=== PATIENT | female | born 1935 | race Caucasian/White ===

== ENCOUNTER 2017-11-02 04:07 | Inpatient (IN) | payer MEDICARE ==
[2017-11-02] MEDS ORDERED: NITROGLYCERIN-D5W PMX 50 MG in DEXTROSE/WATER 1 250ML.BAG IV ONE (04:41)
--- NOTE | 2017-11-02 04:41 | ED ---
General Adult HPI - General Chief complaint: Shortness of Breath Stated complaint: Diff Breathing Time Seen by Provider: 11/02/17 04:11 Source: patient Mode of arrival: EMS Limitations: physical limitation - History of Present Illness Initial comments: Renée is an 82-year-old female with a history of A. fib but no known history of congestive heart failure who is transferred to our facility from outside facility for admission for CHF exacerbation with pulmonary edema. Patient called 911 for acute onset of shortness of breath, she was noted to be tachypneic and hypoxic upon arrival to the outside hospital. EMS had placed her on CPAP, she was resistant to BiPAP and a cardiac workup was initiated. A couple suggestive of CHF exacerbation with a chest x-ray suggestive of fluid overload, BNP of greater than 2000, lactic acid of 5.9, negative troponin and an EKG with atrial fibrillation. He did with IV Lasix and continued on BiPAP prior to being transferred to our facility. Upon arrival the patient denies any chest pain, she reports she is feeling better on the BiPAP, she complains only of a dry mouth. The patient has 2 word dyspnea, is on BiPAP and is tachypneic with a respiratory rate in the 30s which limits her ability to provide a thorough history. - Related Data Allergies Allergy/AdvReac Type Severity Reaction Status Date / Time lisinopril Allergy Unknown Verified 11/02/17 04:24 Review of Systems ROS Statement: Those systems with pertinent positive or pertinent negative responses have been documented in the HPI. ROS Other: All systems not noted in ROS Statement are negative. Past Medical History Past Medical History: Atrial Fibrillation, Hyperlipidemia, Hypertension, Osteoarthritis (OA) History of Any Multi-Drug Resistant Organisms: None Reported Additional Past Surgical History / Comment(s): colonoscopy Past Psychological History: Unable to Obtain Smoking Status: Unknown if ever smoked Past Alcohol Use History: Unable to Obtain Past Drug Use History: Unable to Obtain General Exam Limitations: physical limitation General appearance: alert, in distress Head exam: Present: atraumatic, normocephalic Eye exam: Present: PERRL ENT exam: Present: other (Dentures were removed, patient is on BiPAP) Neck exam: Present: full ROM, other (JVD) Respiratory exam: Present: respiratory distress Cardiovascular Exam: Present: irregular rhythm GI/Abdominal exam: Present: soft. Absent: distended Rectal exam: Present: deferred Extremities exam: Present: normal capillary refill, pedal edema Neurological exam: Present: alert, oriented X3 Psychiatric exam: Present: normal affect, normal mood Skin exam: Present: warm, dry Course Vital Signs 11/02/17 11/02/17 11/02/17 04:16 04:24 05:16 Temperature Pulse Rate 101 H 88 Respiratory 34 H 34 H 30 H Rate Blood Pressure 164/67 128/57 O2 Sat by Pulse 99 99 Oximetry 11/02/17 11/02/17 11/02/17 05:39 06:04 06:10 Temperature Pulse Rate 88 85 87 Respiratory 24 Rate Blood Pressure 130/60 O2 Sat by Pulse 99 Oximetry 11/02/17 06:20 Temperature 96.1 F L Pulse Rate 93 Respiratory 21 Rate Blood Pressure 137/73 O2 Sat by Pulse 99 Oximetry Medical Decision Making - Medical Decision Making Patient care was discussed with ER physician at [facility], patient 's physical exam and labs are consistent with CHF exacerbation. Patient hemodynamically stable on BiPAP remains tachypneic but not acutely distressed he feels she is stable for transfer here On arrival the patient is tachypneic on BiPAP, she has 2 word dyspnea, she is diuresing well Repeat labs were ordered IV nitro was ordered, BiPAP was continued Patient care was discussed with Dr. Johns who accepts the patient to the ICU for CHF with acute pulmonary edema Patient care was discussed with Dr. Paredes the medicine admitting physician - Lab Data Result diagrams: 11/02/17 05:06 11/02/17 05:06 Disposition Clinical Impression: Congestive heart failure, Pulmonary edema cardiac cause Disposition: ADMITTED IP TO THIS [facility] Is patient prescribed a controlled substance at d/c from ED?: No Decision Time: 08:14
[2017-11-02] MEDS ORDERED: NALOXONE 0.4 MG/ML 1 ML VIAL IV PRN (05:02)
[2017-11-02 05:33] LABS: Basophils % (A) 0 %; Eosinophils % (A) 1 %; HCT 45.5 % (34.0-46.0); HGB 14.9 gm/dL (11.4-16.0); Lymphocytes # (A) 0.8 k/uL (1.0-4.8); Lymphocytes % (A) 9 %; MCH 29.4 pg (25.0-35.0); MCHC 32.9 g/dL (31.0-37.0); MCV 89.4 fL (80.0-100.0); Monocytes # (A) 0.2 k/uL (0-1.0); Monocytes % (A) 2 %; Neutrophils # (A) 7.7 k/uL (1.3-7.7); Neutrophils % (A) 88 %; Platelet Count 208 k/uL (150-450); RBC 5.08 m/uL (3.80-5.40); WBC 8.7 k/uL (3.8-10.6)
[2017-11-02 05:42] LABS: INR 1.5 (<1.2); Partial Thromboplastin Time 22.3 sec (22.0-30.0); Prothrombin Time 13.8 sec (9.0-12.0)
[2017-11-02 05:43] LABS: Albumin 4.3 g/dL (3.5-5.0); Magnesium 1.8 mg/dL (1.6-2.3); Phosphorus 4.1 mg/dL (2.5-4.5); Potassium 3.7 mmol/L (3.5-5.1); Total Protein 7.5 g/dL (6.3-8.2)
[2017-11-02 05:57] LABS: Creatine Kinase MB 1.7 ng/mL (0.0-2.4)
[2017-11-02 06:06] LABS: Troponin I 0.06 ng/mL (0.000-0.034)
[2017-11-02 06:31] LABS: Glucose,Whole Blood 213 mg/dL (75-99)
[2017-11-02] MEDS ORDERED: Magnesium Replacement Protocol 1 EACH MISC MISCELLANE PRN (06:39)
[2017-11-02] MEDS ORDERED: Potassium Replacement Protocol 1 EACH MISC MISCELLANE PRN ×2 (06:40→08:28)
[2017-11-02 06:54] LABS: Appearance,Urine Clear (Clear); Color,Urine Colorless; Glucose,Urine (UA) Negative (Negative); Protein,Urine Negative (Negative); Specific Gravity,Urine 1.006 (1.001-1.035)
[2017-11-02 06:55] LABS: Bilirubin,Urine Negative (Negative); Blood,Urine Negative (Negative); Ketones,Urine Negative (Negative); Leukocyte Esterase,Urine Negative (Negative); Nitrite,Urine Negative (Negative); Urobilinogen,Urine <2.0 mg/dL (<2.0)
[2017-11-02] MEDS: MAGNESIUM SULFATE-D5W PMX 1 GM in DEXTROSE/WATER 1 100ML.BAG IVPB SCH ×2 (07:03→08:26)
[2017-11-02] MEDS ORDERED: INSULIN ASPART 100 UNIT/ML 1 ML 10 ML VIAL SQ SCH (07:45)
[2017-11-02] MEDS ORDERED: POTASSIUM CHLORIDE ER 20 MEQ TAB.ER PO SCH (08:00)
--- NOTE | 2017-11-02 08:19 | P.CNPUL ---
History of Present Illness Consult date: 11/02/17 Reason for consult: dyspnea, hypoxemia, pleural effusion, abnormal CXR/CT Chief complaint: Shortness of breath/heart failure History of present illness: Pulmonary consult dated 11/02/2017 This is a 82-year-old female who presents with emergent problem with complaints of increasing shortness of breath. She apparently has a history of chronic atrial fibrillation CHF hypertension dementia hyperlipidemia and vitamin D deficiency. She's also vitamin B12 may have pernicious anemia. Apparently the ER doctors akash is locked and we cannot get into it to review the history. She was seen in the emergency room treated with diuretics and BiPAP therapy and trim transferred up to the ICU. Her chest x-rays consistent with fluid overload. The patient was initially a transfer from [facility]. Currently she is on BiPAP with IPAP of 10 and EPAP of 5. FiO2 35%. Her IVs appointment 9 at KVO and she is on nitroglycerin at 5 mcg/m. She seems much more comfortable. ALLERGIES include lisinopril. She apparently did receive Lasix 60 mg in the emergency department. Review of Systems A 14 point review of system is positive for shortness of breath. The patient is not a particularly good historian and doesn't provide much history. She apparently does not have any fever chills cough phlegm production. There is no nausea vomiting diarrhea. There is no chest pain or chest discomfort according to her. Again it's very hard to get any history from her primarily because she is wearing a BiPAP mask and because she is not a very good historian to begin with. Past Medical History Past Medical History: Atrial Fibrillation, Hyperlipidemia, Hypertension, Osteoarthritis (OA) History of Any Multi-Drug Resistant Organisms: None Reported Additional Past Surgical History / Comment(s): colonoscopy Past Psychological History: Unable to Obtain Smoking Status: Unknown if ever smoked Past Alcohol Use History: Unable to Obtain Past Drug Use History: Unable to Obtain Medications and Allergies Allergies Allergy/AdvReac Type Severity Reaction Status Date / Time lisinopril Allergy Unknown Verified 11/02/17 04:24 Physical Exam Osteopathic Statement: *. No significant issues noted on an osteopathic structural exam other than those noted in the History and Physical/Consult. Vitals: Vital Signs Temp Pulse Resp BP Pulse Ox 11/02/17 07:00 100 19 123/75 98 08/16/18 06:30 88 19 98 11/02/17 06:20 96.1 F L 93 21 137/73 99 11/02/17 06:10 87 11/02/17 06:04 85 11/02/17 05:39 88 24 130/60 99 11/02/17 05:16 88 30 H 128/57 99 11/02/17 04:24 34 H 11/02/17 04:16 101 H 34 H 164/67 99 Intake and Output 11/01/17 11/02/17 11/02/17 22:59 06:59 14:59 Intake Total 70 20 Output Total 350 325 Balance -280 -305 Intake: IV 20 20 0.9 @ KVO 20 20 Amount of Fluid Infused ( 50 ml) Output: Urine 350 325 Other: Voiding Method Indwelling Catheter Weight 69.5 kg Mild respiratory distress, oriented 3. Her BiPAP mask is in place. HEENT examination is grossly unremarkable. Mucous membranes are moist. No oral lesions. Neck supple. Full range of motion. No adenopathy thyromegaly or neck vein distention. Cardiovascular examination reveals a irregular rhythm and rate. She is clearly in atrial fibrillation. S1-S2 normal. Heart rate about 80 bpm.. Lungs reveal bibasilar crackles. No wheezes. A few scattered rhonchi. Breath sounds are equal bilaterally. Breath sounds are diminished throughout. Abdomen soft bowel sounds are heard. No masses or tenderness. Extremities are intact. Mild edema is noted. No cyanosis or clubbing Skin is without rash or lesion. Neurologic examination is difficult to assess. Results - Laboratory Findings CBC and BMP: 11/02/17 05:06 11/02/17 05:06 PT/INR, D-dimer PT 13.8 sec (9.0-12.0) H 11/02/17 05:02 INR 1.5 (<1.2) H 11/02/17 05:02 Abnormal lab findings: Abnormal Labs 11/02/17 11/02/17 11/02/17 05:02 05:02 05:06 Lymphocytes # 0.8 L PT 13.8 H INR 1.5 H BUN Glucose POC Glucose (mg/dL) AST ALT Troponin I 0.060 H* 11/02/17 11/02/17 05:06 06:28 Lymphocytes # PT INR BUN 23 H Glucose 216 H POC Glucose (mg/dL) 213 H AST 104 H ALT 80 H Troponin I - Diagnostic Findings Chest x-ray: report reviewed (Chest x-ray, labs, his medications are all reviewed.), image reviewed Assessment and Plan Assessment: Assessment Acute hypoxemic respiratory failure secondary to congestive heart failure. Chronic atrial fibrillation with controlled ventricular response. History of hypertension History of dementia History of hyperlipidemia Vitamin D deficiency Possible pernicious anemia Mild elevation of troponin, likely related to supply demand mismatch. Plan: Plan dated 11/02/2017 CBC is completely normal. PT 13.8 and INR 1.5. Sodium 143 potassium 3.7 chloride 107 CO2 23 anion gap 13 BUN and creatinine were 23 and 0.9. AST is 104 and ALT is 80 likely reflecting congestive hepatopathy. Troponin is 0.060. N-terminal proBNP is elevated 2580. Chest x-ray is consistent with fluid overload. Medications are reviewed. The patient will need to have some Lasix added likely at 40 mg IV push every 12 hours. Cardiology should be consulted. She is currently on heparin subcu and protonix for DVT and GI prophylaxis. Additional recommendations and suggestions are forthcoming. She remains on KVO fluids the BiPAP and IV nitroglycerin. Time with Patient: Greater than 30
[2017-11-02] MEDS ORDERED: HEPARIN SODIUM,PORCINE 5,000 UNIT/ML 1 ML VIAL SQ SCH (09:00)
--- NOTE | 2017-11-02 09:01 | XR ---
EXAMINATION TYPE: XR chest 1V DATE OF EXAM: 11/02/2017 COMPARISON: 11/02/2017 HISTORY: Shortness of breath TECHNIQUE: Single frontal view of the chest is obtained. FINDINGS: Bilateral infiltrate and pleural effusion. Hyperinflation suggestive of COPD. Diffuse oste openia and arthropathy of the shoulders. Biapical pleural thickening. Hyperinflation suggests COPD. I nterstitial pattern noted. IMPRESSION: 1. COPD with bilateral infiltrate and small effusion correlate for mild venous congestion.
[2017-11-02] MEDS: PANTOPRAZOLE 40 MG/10 ML VIAL IV SCH (09:07)
[2017-11-02] MEDS: FUROSEMIDE 10 MG/ML 4 ML VIAL IV SCH ×2 (09:07→20:52)
[2017-11-02] MEDS: POTASSIUM CHLORIDE 10 MEQ in WATER FOR INJECTION 1 100ML.BAG IVPB SCH ×2 (09:07→12:41)
[2017-11-02 11:47] LABS: Glucose,Whole Blood 242 mg/dL (75-99)
[2017-11-02] MEDS: INSULIN ASPART 100 UNIT/ML 1 ML 10 ML VIAL SQ SCH ×2 (11:50→17:58)
[2017-11-02] MEDS: POTASSIUM CHLORIDE ER 20 MEQ TAB.ER PO SCH (16:47)
[2017-11-02 17:31] LABS: Glucose,Whole Blood 129 mg/dL (75-99)
[2017-11-02] MEDS: APIXABAN 2.5 MG TABLET PO SCH (20:52)
--- NOTE | 2017-11-02 23:02 | P.HPIM ---
History of Present Illness H&P Date: 11/02/17 Chief Complaint: Shortness of breath Patient is a 82-year-old female with a known history of atrial fibrillation on anticoagulation, CHF, hypertension, hyperlipidemia and dementia was initially presented to outside hospital facility with complaints of shortness of breath. Patient was noted to be tachypneic and hypoxic upon arrival to the outside hospital. Patient was placed on CPAP/BiPAP and was transferred to [facility] for cardiac evaluation and patient was admitted to intensive care unit. Patient was also found to have lactic is level 5.9. Troponin 1 negative and EKG showed atrial fibrillation with controlled ventricular rate. Currently patient breathing status is much improved now being monitored in the MICU. BNP 2480 Troponin 0.060 Chest x-ray showed COPD with bilateral infiltrate and small effusion correlate for mild vascular congestion. patient has been afebrile and WBC count 9.7 Review of Systems Constitutional: Patient denies any fever or chills . No generalized weakness or weight loss. Abdomen: Patient denied nausea vomiting and diarrhea and abdominal pain. Cardiovascular: Patient does have shortness of breath. No chest pain. Minimal lower extremities swelling Respiratory: patient denied any cough is from production. Patient does have shortness of breath Neurologic: Patient denied any numbness or tingling headache. Musculoskeletal: Patient denies any complaints of joint swelling or deformity. Skin: Negative Patient is a poor historian due to underlying dementia. Complete review of systems could not be obtained from the patient. 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 History of Any Multi-Drug Resistant Organisms: None Reported Past Surgical History: Bowel Resection, Hysterectomy, Orthopedic Surgery Additional Past Surgical History / Comment(s): colonoscopy, R hemicolectomy for aplastic adenoma, TAHBSO, L knee arthroscopy x2, x 2, bilateral cataract removals. Past Anesthesia/Blood Transfusion Reactions: No Reported Reaction Smoking Status: Former smoker - Past Family History Mother Family Medical History: Coronary Artery Disease (CAD) Additional Family Medical History / Comment(s): Mother lived to be 83 yrs old. Father History Unknown: Yes Additional Family Medical History / Comment(s): Father when pt was 6 yrs old Medications and Allergies Home Medications Medication Instructions Recorded Confirmed Type Apixaban [Eliquis] 2.5 mg PO BID 11/02/17 11/02/17 History Atorvastatin Calcium [Lipitor] 10 mg PO DAILY 11/02/17 11/02/17 History Carvedilol [Coreg] 3.125 mg PO BID 11/02/17 11/02/17 History Donepezil [Aricept] 10 mg PO DAILY 11/02/17 11/02/17 History Furosemide [Lasix] 40 mg PO DAILY 11/02/17 11/02/17 History Ibuprofen [Motrin] 400 mg PO TID PRN 11/02/17 11/02/17 History Losartan [Cozaar] 25 mg PO DAILY 11/02/17 11/02/17 History Potassium Chloride [Klor-Con 20] 20 meq PO DAILY 11/02/17 11/02/17 History Allergies Allergy/AdvReac Type Severity Reaction Status Date / Time lisinopril Allergy Unknown Verified 11/02/17 04:24 Physical Exam Vitals: Vital Signs Temp Pulse Resp BP Pulse Ox 11/02/17 15:00 77 18 100/59 98 11/02/17 14:30 77 17 106/63 96 11/02/17 14:00 87 16 109/58 96 11/02/17 13:30 79 15 114/55 98 11/02/17 13:00 78 20 104/59 99 11/02/17 12:30 88 22 108/57 100 11/02/17 12:00 97.8 F 80 19 101/71 100 11/02/17 11:30 82 18 124/67 99 11/02/17 11:00 75 19 112/64 99 11/02/17 10:30 83 22 94/77 100 11/02/17 10:00 78 18 107/61 100 11/02/17 09:30 79 19 119/55 99 11/02/17 09:00 84 21 124/63 94 L 11/02/17 08:30 83 19 119/66 99 11/02/17 08:00 97.6 F 87 19 120/73 99 11/02/17 07:30 85 19 124/77 99 11/02/17 07:00 100 19 123/75 98 11/02/17 06:30 88 19 98 11/02/17 06:20 96.1 F L 93 21 137/73 99 11/02/17 06:10 87 11/02/17 06:04 85 11/02/17 05:39 88 24 130/60 99 11/02/17 05:16 88 30 H 128/57 99 11/02/17 04:24 34 H 11/02/17 04:16 101 H 34 H 164/67 99 Intake and Output 11/02/17 11/02/17 11/02/17 06:59 14:59 22:59 Intake Total 70 520 20 Output Total 350 1435 35 Balance -280 -915 -15 Intake: IV 20 520 20 0.9 @ KVO 20 120 20 Magnesium Sulfate-D5w Pmx 200 1 gm In Dextrose/Water 1 100ml.bag @ 100 mls/hr IVPB Q1H [facility] Rx#: [id number] Potassium Chloride 10 meq 200 In Water For Injection 1 100ml.bag @ 100 mls/hr IVPB Q1H [facility] Rx#: [id number] Amount of Fluid Infused ( 50 ml) Output: Urine 350 1435 35 Other: Voiding Method Indwelling Catheter Indwelling Catheter Weight 69.5 kg PHYSICAL EXAMINATION: Patient is lying in the bed comfortably, no acute distress, awake alert and oriented.. HEENT: Normocephalic. Neck is supple. Pupils reactive. Nostrils clear. Oral cavity is moist. Ears reveal no drainage. Neck reveals no JVD, carotid bruits, or thyromegaly. CHEST EXAMINATION: Trachea is central. Symmetrical expansion. Bibasilar diminished air entry. No wheezing. CARDIAC: Normal S1, S2 with no gallops. Systolic murmur ABDOMEN: Soft. Bowel sounds normal. No organomegaly. No abdominal bruits. Extremities: 1+ edema. No clubbing or cyanosis Neurologically awake, alert, oriented x2 with well-coordinated movements. Patient does have underlying dementia. No focal deficits noted Skin: No rash or skin lesions. Psychiatric: Coperative. Nonsuicidal Musculoskeletal: No joint swelling or deformity. Normal range of motion. Results CBC & Chem 7: 11/02/17 05:06 11/02/17 05:06 Labs: Abnormal Lab Results - Last 24 Hours (Table) 11/02/17 11/02/17 11/02/17 Range/Units 05:02 05:02 05:06 Lymphocytes # 0.8 L (1.0-4.8) k/uL PT 13.8 H (9.0-12.0) sec INR 1.5 H (<1.2) BUN (7-17) mg/dL Glucose (74-99) mg/dL POC Glucose (mg/dL) (75-99) mg/dL AST (14-36) U/L ALT (9-52) U/L Troponin I 0.060 H* (0.000-0.034) ng/mL 11/02/17 11/02/17 11/02/17 Range/Units 05:06 06:28 11:05 Lymphocytes # (1.0-4.8) k/uL PT (9.0-12.0) sec INR (<1.2) BUN 23 H (7-17) mg/dL Glucose 216 H (74-99) mg/dL POC Glucose (mg/dL) 213 H (75-99) mg/dL AST 104 H (14-36) U/L ALT 80 H (9-52) U/L Troponin I 0.159 H* (0.000-0.034) ng/mL 11/02/17 Range/Units 11:46 Lymphocytes # (1.0-4.8) k/uL PT (9.0-12.0) sec INR (<1.2) BUN (7-17) mg/dL Glucose (74-99) mg/dL POC Glucose (mg/dL) 242 H (75-99) mg/dL AST (14-36) U/L ALT (9-52) U/L Troponin I (0.000-0.034) ng/mL Microbiology - Last 24 Hours (Table) 11/02/17 06:45 Urine Culture - Preliminary Urine,Catheterized Thrombosis Risk Factor Assmnt - DVT/VTE Prophylaxis DVT/VTE Prophylaxis: Pharmacologic Prophylaxis ordered - Choose All That Apply Any of the Below Risk Factors Present?: Yes Each Factor Represents 1 point: Heart failure (<1month), Obesity (BMI >25) Other Risk Factors: Yes Each Risk Factor Represents 3 Points: Age 75 years or older Other congenital or acquired thrombophilia - If yes, enter type in comment: No Thrombosis Risk Factor Assessment Total Risk Factor Score: 5 Thrombosis Risk Factor Assessment Level: High Risk Assessment and Plan Assessment: Acute hypoxic respiratory failure secondary to CHF exacerbation. Acute CHF. Ejection fraction unknown. Elevated troponin level. Possible non-ST elevated MA. Chronic atrial fibrillation. On anticoagulation with eliquis, Rate controlled. Hypertension controlled Hyperlipidemia Dementia History of the CVA/TIA. No residual defects. Osteoarthritis Previous history of smoking Plan: Patient is being continued on Lasix IV twice daily. BiPAP as needed. We will start back on Coreg and lisinopril as per her home dose tomorrow once the blood pressure is stable. Continue with oral anticoagulation. Telemetry monitoring. Cardiology was consulted and pulmonary is following. 2-D echocardiogram was ordered. Further recommendations based on the clinical course. Prognosis guarded. Time with Patient: Greater than 30
[2017-11-03 01:17] LABS: Glucose,Whole Blood 118 mg/dL (75-99)
[2017-11-03] MEDS: INSULIN ASPART 100 UNIT/ML 1 ML 10 ML VIAL SQ SCH ×5 (01:26→20:44)
[2017-11-03 05:11] LABS: Basophils % (A) 0 %; Eosinophils % (A) 0 %; HCT 37.1 % (34.0-46.0); HGB 12.6 gm/dL (11.4-16.0); Lymphocytes # (A) 1.1 k/uL (1.0-4.8); Lymphocytes % (A) 11 %; MCH 29.8 pg (25.0-35.0); MCHC 33.9 g/dL (31.0-37.0); Mean Platelet Volume 6.9; Monocytes # (A) 0.6 k/uL (0-1.0); Monocytes % (A) 6 %; Neutrophils % (A) 82 %; Platelet Count 182 k/uL (150-450); RBC 4.21 m/uL (3.80-5.40); RDW 13.8 % (11.5-15.5); WBC 9.8 k/uL (3.8-10.6)
[2017-11-03 05:22] LABS: Anion Gap 7 mmol/L; Blood Urea Nitrogen 22 mg/dL (7-17); Calcium 8.9 mg/dL (8.4-10.2); Carbon Dioxide 27 mmol/L (22-30); Chloride 106 mmol/L (98-107); Glucose 110 mg/dL (74-99); Magnesium 2.1 mg/dL (1.6-2.3); Phosphorus 3.6 mg/dL (2.5-4.5); Potassium 4.2 mmol/L (3.5-5.1); Sodium 140 mmol/L (137-145)
[2017-11-03 06:05] LABS: Glucose,Whole Blood 108 mg/dL (75-99)
[2017-11-03] MEDS ORDERED: ACETAMINOPHEN TAB 325 MG TAB PO PRN (06:51)
--- NOTE | 2017-11-03 08:41 | XR ---
EXAMINATION TYPE: XR chest 1V DATE OF EXAM: 11/03/2017 COMPARISON: 11/02/2017 HISTORY: Shortness of breath TECHNIQUE: Single frontal view of the chest is obtained. FINDINGS: Bilateral infiltrate and pleural effusion. Hyperinflation suggestive of COPD. Diffuse oste openia and arthropathy of the shoulders. Biapical pleural thickening. Hyperinflation suggests COPD. I nterstitial pattern noted. IMPRESSION: 1. COPD with bilateral infiltrate and small effusion correlate for mild venous congestion.
[2017-11-03] MEDS: PANTOPRAZOLE 40 MG/10 ML VIAL IV SCH (08:46)
[2017-11-03] MEDS: APIXABAN 2.5 MG TABLET PO SCH ×2 (08:47→21:59)
[2017-11-03] MEDS: ATORVASTATIN 10 MG TAB PO SCH (08:47)
[2017-11-03] MEDS: POTASSIUM CHLORIDE ER 20 MEQ TAB.ER PO SCH (08:47)
[2017-11-03] MEDS: FUROSEMIDE 10 MG/ML 4 ML VIAL IV SCH ×2 (08:47→21:59)
--- NOTE | 2017-11-03 09:05 | P.PN ---
Subjective Progress Note Date: 11/03/17 Principal diagnosis: Heart failure Progress note dated 11/03/2017 82-year-old female who presents with shortness of breath secondary to CHF. The patient has a history of chronic atrial fibrillation, CHF, hypertension, dementia, hyperlipidemia and vitamin D deficiency. She was transferred over from [facility] and was initially BiPAP dependent. Doing much better now. The patient's currently on O2 at 2 L by nasal cannula and IV nitroglycerin at 5 mcg/m and 0.9 at KVO. The patient still is a bit short of breath. Denies any chest pain or pressure. Heart rate is 73. Blood pressure 103/53 with a mean of 72. Saturations are mid 90s on 2 L. The patient was diuresed. She seems to have responded very nicely to this. She seems much more comfortable today than she did yesterday still appears to have some very mild conversational dyspnea. Chest x-ray is still consistent with mild fluid overload. Objective - Vital Signs Vital signs: Vital Signs Temp 98 F 11/03/17 08:00 Pulse 74 11/03/17 08:00 Resp 20 11/03/17 08:00 BP 104/63 11/03/17 08:00 Pulse Ox 97 11/03/17 08:00 Intake & Output 11/02/17 11/03/17 11/03/17 18:59 06:59 18:59 Intake Total 1217.35 555.175 100 Output Total 1580 1015 40 Balance -362.65 -459.825 60 Weight 64.6 kg Intake: IV 600 240 40 0.9 @ KVO 200 240 40 Magnesium Sulfate-D5w Pmx 200 1 gm In Dextrose/Water 1 100ml.bag @ 100 mls/hr IVPB Q1H [facility] Rx#: [id number] Potassium Chloride 10 meq 200 In Water For Injection 1 100ml.bag @ 100 mls/hr IVPB Q1H [facility] Rx#: [id number] Intake, IV Titration 17.35 15.175 Amount Nitroglycerin-D5w Pmx 50 17.35 15.175 mg In Dextrose/Water 1 250ml.bag @ 5 MCG/MIN 1.5 mls/hr IV .Q24H [facility] Rx#: [id number] Oral 600 300 60 Output: Urine 1580 1015 40 Other: Voiding Method Indwelling Catheter Indwelling Catheter Indwelling Catheter # Bowel Movements 0 0 0 - Exam No acute distress, oriented 3. Nasal O2 in place at 2 L/m HEENT examination is grossly unremarkable. Mucous membranes are moist. No oral lesions. Neck supple. Full range of motion. No adenopathy thyromegaly or neck vein distention. Cardiovascular examination irregular rhythm and rate. Heart rate is 73. S1-S2 normal. No heart murmur. Lungs reveal mild bibasilar crackles. No wheezes or rhonchi. No prolongation. Her sounds equal bilaterally. Breath sounds are improved today compared to yesterday. Abdomen soft bowel sounds are heard. No masses or tenderness. Extremities are intact. Minimal lower extremity edema. No cyanosis or clubbing. Skin is without rash or lesion. Neurologic examination is brief but nonfocal. - Labs CBC & Chem 7: 11/03/17 04:47 11/03/17 04:47 Labs: Abnormal Lab Results - Last 24 Hours (Table) 11/02/17 11/02/17 11/02/17 Range/Units 11:05 11:46 17:20 Neutrophils # (1.3-7.7) k/uL BUN (7-17) mg/dL Glucose (74-99) mg/dL POC Glucose (mg/dL) 242 H (75-99) mg/dL Troponin I 0.159 H* 0.297 H* (0.000-0.034) ng/mL 11/02/17 11/03/17 11/03/17 Range/Units 17:28 01:15 04:47 Neutrophils # 8.0 H (1.3-7.7) k/uL BUN (7-17) mg/dL Glucose (74-99) mg/dL POC Glucose (mg/dL) 129 H 118 H (75-99) mg/dL Troponin I (0.000-0.034) ng/mL 11/03/17 11/03/17 Range/Units 04:47 06:04 Neutrophils # (1.3-7.7) k/uL BUN 22 H (7-17) mg/dL Glucose 110 H (74-99) mg/dL POC Glucose (mg/dL) 108 H (75-99) mg/dL Troponin I (0.000-0.034) ng/mL Microbiology - Last 24 Hours (Table) 08/16/18 06:45 Urine Culture - Preliminary Urine,Catheterized Assessment and Plan Assessment: Assessment Acute hypoxemic respiratory failure secondary to congestive heart failure. Chronic atrial fibrillation with controlled ventricular response. History of hypertension History of dementia History of hyperlipidemia Vitamin D deficiency Possible pernicious anemia Mild elevation of troponin, likely related to supply demand mismatch. Plan: Plan dated 11/02/2017 CBC is completely normal. PT 13.8 and INR 1.5. Sodium 143 potassium 3.7 chloride 107 CO2 23 anion gap 13 BUN and creatinine were 23 and 0.9. AST is 104 and ALT is 80 likely reflecting congestive hepatopathy. Troponin is 0.060. N-terminal proBNP is elevated 2580. Chest x-ray is consistent with fluid overload. Medications are reviewed. The patient will need to have some Lasix added likely at 40 mg IV push every 12 hours. Cardiology should be consulted. She is currently on heparin subcu and protonix for DVT and GI prophylaxis. Additional recommendations and suggestions are forthcoming. She remains on KVO fluids the BiPAP and IV nitroglycerin. Plan dated 11/03/2017 Laboratory data today shows a normal CBC. Comprehensive metabolic profile is mostly normal today. Chest x-rays improved in my opinion and clinically she seems more comfortable. She still does have some mild conversational dyspnea. She currently is on Tylenol, Eliquis, Lipitor, Lasix, insulin, Protonix, potassium replacement. Patient remains on O2 2 L by nasal cannula and IV nitroglycerin at 5 mcg/m and a saline IV at KVO. We will continue to observe and evaluate the patient carefully. She might be able to be transferred out to the monitored floor later today. Prognosis is guarded. Critical care time 31 minutes Time with Patient: Greater than 30
[2017-11-03 11:48] LABS: Glucose,Whole Blood 141 mg/dL (75-99)
--- NOTE | 2017-11-03 12:16 | CONS ---
CONSULTATION Mrs. Reyes is an 82-year-old female came by ambulance with a complaint of acute onset of shortness of breath. The patient was found to be tachypneic and hypoxic upon arrival. EMS placed her on CPAP and the patient was resistant to BiPAP. Cardiac workup was initiated. The patient had a chest x-ray that was suggestive of congestive cardiac failure and the BNP was 2500. The patient's lactic acid was . EKG showed evidence of atrial fibrillation with a controlled rate. Patient did not complain of any chest pain. The patient has a history of chronic atrial fibrillation. PAST MEDICAL HISTORY: Past medical history includes atrial fibrillation, hyperlipidemia, hypertension, osteoarthritis, colonoscopy. PHYSICAL EXAMINATION: Physical examination at present reveals an 82-year-old female, who does not appear to be in any acute distress. She is comfortable. Respiratory rate is 24. Blood pressure is 115/61 mmHg, oxygen saturation is 94%. Head/ENT examination is negative. Neck is supple. There is no increase in jugular venous pressure. Both the carotid pulses are felt. There is no bruit. Chest is symmetrical. HEART: The PMI is not felt. First and second heart sounds are normal. Lung examination reveals bilateral basal rales. Abdomen is soft. EXTREMITIES: Peripheral pulsations are 2+. EKG shows evidence of atrial fibrillation with a controlled rate. The patient's initial troponin was 0.297. The proBNP level was 2580. Electrolytes are normal. Patient has been diuresing fairly well with IV Lasix. FINAL IMPRESSION: This patient presented with acute on chronic heart failure. Ejection fraction at present unknown. Echocardiogram will be done. Atrial fibrillation with a controlled rate. RECOMMENDATIONS: We will switch her from Pradaxa to Eliquis 2.5 mg b.i.d. as the patient is 82 years old and she is 64 kg and continue the IV Lasix. Aldactone 25 mg daily would be added and echocardiogram will be done. MMODL / IJN: [id number] /
--- NOTE | 2017-11-03 14:13 | ECHOF ---
Referral Reason:elevated trops, MEASUREMENTS -------- HEIGHT: 162.6 cm WEIGHT: 64.4 kg BP: 114/2 RVIDd: 2.8 cm (< 3.3) IVSd: 1.3 cm (0.6 - 1.1) LVIDd: 4.1 cm (3.9 - 5.3) LVPWd: 1.4 cm (0.6 - 1.1) IVSs: 1.8 cm LVIDs: 3.3 cm LVPWs: 1.7 cm LA Diam: 3.8 cm (2.7 - 3.8) LAESV Index (A-L): 40.82 ml/m Ao Diam: 3.0 cm (2.0 - 3.7) AV Cusp: 2.0 cm (1.5 - 2.6) MV EXCURSION: 16.095 mm (> 18.000) MV EF SLOPE: 96 mm/s (70 - 150) EPSS: 0.3 cm RAP: 5.00 mmHg RVSP: 33.76 mmHg FINDINGS -------- Atrial fibrillation. This was a technically adequate study. The left ventricular size is normal. There is moderate concentric left ventricular hypertrophy. O verall left ventricular systolic function is moderately impaired with, an EF between 35 - 40 %. Bas al anterior LV wall motion is hypokinetic. Mid anterior LV wall motion is hypokinetic. Apical a nterior LV wall motion is hypokinetic. The right ventricle is normal in size. LA is severely dilated >40 ml/m2 The right atrium is normal in size. There is mild aortic valve sclerosis. The mitral valve leaflets are mildly thickened. Severe mitral regurgitation is present. Mild tricuspid regurgitation present. Right ventricular systolic pressure is normal at < 35 mmHg. The pulmonic valve was not well visualized. The aortic root size is normal. Normal inferior vena cava with normal inspiratory collapse consistent with estimated right atrial pre ssure of 5 mmHg. The pericardium is normal. CONCLUSIONS -------- 1. Atrial fibrillation. 2. This was a technically adequate study. 3. The left ventricular size is normal. 4. There is moderate concentric left ventricular hypertrophy. 5. Overall left ventricular systolic function is moderately impaired with, an EF between 35 - 40 %. 6. Basal anterior LV wall motion is hypokinetic. 7. Mid anterior LV wall motion is hypokinetic. 8. Apical anterior LV wall motion is hypokinetic. 9. The right ventricle is normal in size. 10. LA is severely dilated >40 ml/m2 11. The right atrium is normal in size. 12. There is mild aortic valve sclerosis. 13. The mitral valve leaflets are mildly thickened. 14. Severe mitral regurgitation is present. 15. Mild tricuspid regurgitation present. 16. Right ventricular systolic pressure is normal at < 35 mmHg. 17. The pulmonic valve was not well visualized. 18. The aortic root size is normal. 19. Normal inferior vena cava with normal inspiratory collapse consistent with estimated right atrial pressure of 5 mmHg. 20. The pericardium is normal. [employer]KEY TRAINER: Zaria Palomares RDCS
[2017-11-03 16:57] LABS: Glucose,Whole Blood 106 mg/dL (75-99)
[2017-11-03] MEDS: CARVEDILOL 3.125 MG TAB PO SCH (17:05)
[2017-11-03 20:47] LABS: Glucose,Whole Blood 102 mg/dL (75-99)
--- NOTE | 2017-11-04 02:34 | P.PN ---
Subjective Progress Note Date: 11/03/17 Principal diagnosis: Acute CHF exacerbation Patient is a 82-year-old female with a known history of atrial fibrillation on anticoagulation, CHF, hypertension, hyperlipidemia and dementia was initially presented to outside hospital facility with complaints of shortness of breath. Patient was noted to be tachypneic and hypoxic upon arrival to the outside hospital. Patient was placed on CPAP/BiPAP and was transferred to [facility] for cardiac evaluation and patient was admitted to intensive care unit. Patient was also found to have lactic is level 5.9. Troponin 1 negative and EKG showed atrial fibrillation with controlled ventricular rate. Currently patient breathing status is much improved now being monitored in the MICU. BNP 2480 Troponin 0.060 Chest x-ray showed COPD with bilateral infiltrate and small effusion correlate for mild vascular congestion. patient has been afebrile and WBC count 9.7 On 11/03/2017 Patient's breathing status is much improved now. Currently saturating well on nasal cannula. Patient is on IV Lasix and Coreg was added. Cardiology and pulmonary is following. Chest x-ray showed COPD with bilateral infiltrate and small effusion correlate for mild vascular congestion 2-D echocardiogram showed ejection fraction 35-40% No complaints of fever or chills. No nausea vomiting or abdominal pain. Patient does have underlying dementia otherwise. Complete review of systems could not be apparent from the patient due to underlying dementia Current medications reviewed Objective - Vital Signs Vital signs: Vital Signs Temp 97.2 F L 11/03/17 12:00 Pulse 89 11/03/17 14:00 Resp 28 H 11/03/17 14:00 BP 101/63 11/03/17 14:00 Pulse Ox 96 11/03/17 16:15 Intake & Output 11/02/17 11/03/17 11/03/17 18:59 06:59 18:59 Intake Total 1217.35 555.175 720 Output Total 1580 1015 672 Balance -362.65 -459.825 48 Weight 64.6 kg Intake: IV 600 240 160 0.9 @ KVO 200 240 160 Magnesium Sulfate-D5w Pmx 200 1 gm In Dextrose/Water 1 100ml.bag @ 100 mls/hr IVPB Q1H NIGEL Rx#: [id number] Potassium Chloride 10 meq 200 In Water For Injection 1 100ml.bag @ 100 mls/hr IVPB Q1H NIGEL Rx#: [id number] Intake, IV Titration 17.35 15.175 Amount Nitroglycerin-D5w Pmx 50 17.35 15.175 mg In Dextrose/Water 1 250ml.bag @ 5 MCG/MIN 1.5 mls/hr IV .Q24H ONE Rx#: [id number] Oral 600 300 560 Output: Urine 1580 1015 672 Other: Voiding Method Indwelling Catheter Indwelling Catheter Indwelling Catheter # Bowel Movements 0 0 0 - Exam PHYSICAL EXAMINATION: Patient is lying in the bed comfortably, no acute distress, awake alert and oriented.. HEENT: Normocephalic. Neck is supple. Pupils reactive. Nostrils clear. Oral cavity is moist. Ears reveal no drainage. Neck reveals no JVD, carotid bruits, or thyromegaly. CHEST EXAMINATION: Trachea is central. Symmetrical expansion. Lung álvarez clear to auscultation and percussion. CARDIAC: Normal S1, S2 with no gallops. No murmurs ABDOMEN: Soft. Bowel sounds normal. No organomegaly. No abdominal bruits. Extremities: reveal no edema. No clubbing or cyanosis Neurologically awake, alert, oriented x2 with well-coordinated movements. No focal deficits noted Skin: No rash or skin lesions. Psychiatric: Coperative. Musculoskeletal: No joint swelling or deformity. Normal range of motion. - Labs CBC & Chem 7: 11/03/17 04:47 11/03/17 04:47 Labs: Abnormal Lab Results - Last 24 Hours (Table) 11/02/17 11/02/17 11/03/17 Range/Units 17:20 17:28 01:15 Neutrophils # (1.3-7.7) k/uL BUN (7-17) mg/dL Glucose (74-99) mg/dL POC Glucose (mg/dL) 129 H 118 H (75-99) mg/dL Troponin I 0.297 H* (0.000-0.034) ng/mL 11/03/17 11/03/17 11/03/17 Range/Units 04:47 04:47 06:04 Neutrophils # 8.0 H (1.3-7.7) k/uL BUN 22 H (7-17) mg/dL Glucose 110 H (74-99) mg/dL POC Glucose (mg/dL) 108 H (75-99) mg/dL Troponin I (0.000-0.034) ng/mL 11/03/17 Range/Units 11:48 Neutrophils # (1.3-7.7) k/uL BUN (7-17) mg/dL Glucose (74-99) mg/dL POC Glucose (mg/dL) 141 H (75-99) mg/dL Troponin I (0.000-0.034) ng/mL Microbiology - Last 24 Hours (Table) 11/02/17 06:45 Urine Culture - Final Urine,Catheterized Assessment and Plan Assessment: Acute hypoxic respiratory failure secondary to CHF exacerbation. Acute CHF with systolic dysfunction. Ejection fraction 35-40%. Elevated troponin level. Possible non-ST elevated NE. Chronic atrial fibrillation. On anticoagulation with eliquis, Rate controlled. Hypertension controlled Hyperlipidemia Dementia History of the CVA/TIA. No residual defects. Osteoarthritis Previous history of smoking Plan: Patient is being continued on Lasix IV twice daily. BiPAP as needed. Patient was started on Coreg 3.125 mg twice a day. Continue with oral anticoagulation. Telemetry monitoring. Cardiology was consulted and pulmonary is following. 2 -D echocardiogram was done. Further recommendations based on the clinical course. Prognosis guarded. Time with Patient: Greater than 30
[2017-11-04 06:29] LABS: Glucose,Whole Blood 102 mg/dL (75-99)
--- NOTE | 2017-11-04 06:54 | XR ---
EXAMINATION TYPE: XR chest 1V DATE OF EXAM: 11/04/2017 HISTORY: fluid overload. REFERENCE: Previous study dated 11/03/2017. FINDINGS: The lungs are overinflated. The heart is mildly enlarged. There is bibasilar airspace disea se. There are small, bilateral effusions. There is pulmonary vascular congestion and subtle interstit ial change. IMPRESSION: 1. COPD. 2. SUBTLE CHANGES OF CONGESTIVE HEART FAILURE. 3. BIBASILAR AIRSPACE DISEASE. 4. SMALL, BILATERAL EFFUSIONS.
[2017-11-04 07:02] LABS: Basophils % (A) 1 %; Eosinophils # (A) 0.1 k/uL (0-0.7); Eosinophils % (A) 2 %; HCT 40.6 % (34.0-46.0); HGB 13.7 gm/dL (11.4-16.0); Lymphocytes # (A) 1.6 k/uL (1.0-4.8); Lymphocytes % (A) 21 %; MCH 29.6 pg (25.0-35.0); MCHC 33.8 g/dL (31.0-37.0); MCV 87.3 fL (80.0-100.0); Mean Platelet Volume 6.7; Monocytes # (A) 0.4 k/uL (0-1.0); Monocytes % (A) 5 %; Neutrophils # (A) 5.4 k/uL (1.3-7.7); Neutrophils % (A) 71 %; Platelet Count 176 k/uL (150-450); RBC 4.65 m/uL (3.80-5.40); RDW 14.1 % (11.5-15.5); WBC 7.5 k/uL (3.8-10.6)
[2017-11-04 07:09] LABS: Calcium 8.9 mg/dL (8.4-10.2); Magnesium 1.9 mg/dL (1.6-2.3); Phosphorus 3.1 mg/dL (2.5-4.5); Potassium 4.1 mmol/L (3.5-5.1)
[2017-11-04] MEDS: INSULIN ASPART 100 UNIT/ML 1 ML 10 ML VIAL SQ SCH ×4 (08:28→20:55)
[2017-11-04] MEDS: FUROSEMIDE 10 MG/ML 4 ML VIAL IV SCH (08:43)
[2017-11-04] MEDS: APIXABAN 2.5 MG TABLET PO SCH ×2 (08:43→21:13)
[2017-11-04] MEDS: PANTOPRAZOLE 40 MG/10 ML VIAL IV SCH (08:44)
[2017-11-04] MEDS: LOSARTAN 25 MG TAB PO SCH (08:44)
[2017-11-04] MEDS: SPIRONOLACTONE 25 MG TAB PO SCH (08:44)
[2017-11-04] MEDS: POTASSIUM CHLORIDE ER 20 MEQ TAB.ER PO SCH (08:44)
[2017-11-04] MEDS: ATORVASTATIN 10 MG TAB PO SCH (08:44)
[2017-11-04] MEDS: CARVEDILOL 3.125 MG TAB PO SCH ×2 (08:44→17:32)
--- NOTE | 2017-11-04 11:14 | P.PN ---
Subjective Progress Note Date: 11/04/17 Principal diagnosis: Acute hypoxic respiratory failure secondary to an acute exacerbation of chronic systolic congestive heart failure and atrial fibrillation with rapid ventricular response. Pulmonary consult dated 11/02/2017 This is a 82-year-old female who presents with emergent problem with complaints of increasing shortness of breath. She apparently has a history of chronic atrial fibrillation CHF hypertension dementia hyperlipidemia and vitamin D deficiency. She's also vitamin B12 may have pernicious anemia. Apparently the ER doctors akash is locked and we cannot get into it to review the history. She was seen in the emergency room treated with diuretics and BiPAP therapy and trim transferred up to the ICU. Her chest x-rays consistent with fluid overload. The patient was initially a transfer from [facility]. Currently she is on BiPAP with IPAP of 10 and EPAP of 5. FiO2 35%. Her IVs appointment 9 at KVO and she is on nitroglycerin at 5 mcg/m. She seems much more comfortable. ALLERGIES include lisinopril. She apparently did receive Lasix 60 mg in the emergency department. Progress note dated 11/03/2017 82-year-old female who presents with shortness of breath secondary to CHF. The patient has a history of chronic atrial fibrillation, CHF, hypertension, dementia, hyperlipidemia and vitamin D deficiency. She was transferred over from [facility] and was initially BiPAP dependent. Doing much better now. The patient's currently on O2 at 2 L by nasal cannula and IV nitroglycerin at 5 mcg/m and 0.9 at KVO. The patient still is a bit short of breath. Denies any chest pain or pressure. Heart rate is 73. Blood pressure 103/53 with a mean of 72. Saturations are mid 90s on 2 L. The patient was diuresed. She seems to have responded very nicely to this. She seems much more comfortable today than she did yesterday still appears to have some very mild conversational dyspnea. Chest x-ray is still consistent with mild fluid overload. The patient is seen again today 11/04/2017 in follow-up on the selective care unit. She is currently awake and alert in no acute distress. Chest x-ray reveals evidence of COPD, stable pulmonary vascular congestion. Small bilateral effusions. She is maintaining good O2 saturations in the 90s on room air. She's been afebrile. She remains in atrial fibrillation. Rate currently controlled. Blood pressure stable. White count 7.5. Hemoglobin 13.7. Creatinine 0.79. He is anticoagulated with Eliquis. Currently on Lasix 40 IV every 12 hours. She is hoping to go home. Objective - Vital Signs Vital signs: Vital Signs Temp 98.4 F 11/04/17 08:42 Pulse 88 11/04/17 08:42 Resp 20 11/04/17 08:42 BP 137/64 11/04/17 08:42 Pulse Ox 96 11/04/17 08:42 Intake & Output 11/03/17 11/04/17 11/04/17 18:59 06:59 18:59 Intake Total 800 300 Output Total 811 1966 200 Balance -11 -1666 -200 Weight 63 kg Intake: IV 240 60 0.9 @ KVO 240 60 Oral 560 240 Output: Urine 811 1966 200 Uretheral (Bocanegra) 200 Other: Voiding Method Indwelling Catheter Indwelling Catheter Indwelling Catheter # Bowel Movements 0 0 - Exam No acute distress, oriented 3. Comfortable on room air. HEENT examination is grossly unremarkable. Mucous membranes are moist. No oral lesions. Neck supple. Full range of motion. No adenopathy thyromegaly or neck vein distention. Cardiovascular examination irregular rhythm and rate. Heart rate is 73. S1-S2 normal. No heart murmur. Lungs reveal mild bibasilar crackles. No wheezes or rhonchi. No prolongation. Her sounds equal bilaterally. Breath sounds are improved today compared to yesterday. Abdomen soft bowel sounds are heard. No masses or tenderness. Extremities are intact. Minimal lower extremity edema. No cyanosis or clubbing. Skin is without rash or lesion. Neurologic examination is brief but nonfocal. - Labs CBC & Chem 7: 11/04/17 06:24 11/04/17 06:24 Labs: Abnormal Lab Results - Last 24 Hours (Table) 11/03/17 11/03/17 11/03/17 Range/Units 11:48 16:56 20:43 Carbon Dioxide (22-30) mmol/L BUN (7-17) mg/dL POC Glucose (mg/dL) 141 H 106 H 102 H (75-99) mg/dL 11/04/17 11/04/17 Range/Units 06:15 06:24 Carbon Dioxide 31 H (22-30) mmol/L BUN 20 H (7-17) mg/dL POC Glucose (mg/dL) 102 H (75-99) mg/dL Microbiology - Last 24 Hours (Table) 11/02/17 06:45 Urine Culture - Final Urine,Catheterized Assessment and Plan Assessment: Assessment Acute hypoxemic respiratory failure secondary to congestive heart failure. Chronic atrial fibrillation with controlled ventricular response. History of hypertension History of dementia History of hyperlipidemia Vitamin D deficiency Possible pernicious anemia Mild elevation of troponin, likely related to supply demand mismatch. Plan: The patient was seen and evaluated by Dr. Johns. Chest x-ray and labs were reviewed. She is stable from the pulmonary and critical care standpoint. We' ll follow the patient on as-needed basis. I, the cosigning physician, performed a history & physical examination of the patient. Lungs sounds with faint crackles in the bilateral posterior bases. Maintaining good O2 saturations in the 90s on room air. I discussed the assessment and plan of care with my nurse practitioner, Nidia Mendez. I attest to the above note as dictated by her.
[2017-11-04 12:03] LABS: Glucose,Whole Blood 103 mg/dL (75-99)
--- NOTE | 2017-11-04 13:11 | P.PN ---
Subjective Progress Note Date: 11/04/17 This is a 82-year-old female who presents with emergent problem with complaints of increasing shortness of breath. She apparently has a history of chronic atrial fibrillation CHF hypertension dementia hyperlipidemia and vitamin D deficiency. She's also vitamin B12 may have pernicious anemia. She presented to the hospital with symptoms of progressively worsening shortness of breath. Currently receiving treatment for congestive heart failure. She diuresed well through the night last night, her weight is down a kilograms today. Patient does have history of chronic atrial fibrillation, hypertension, hyperlipidemia. She is on Eliquis 200 mg one tablet by mouth twice a day this time for anticoagulation. We'll discontinue the IV Lasix today and start the patient on oral diuretics. Plan for possible discharge home in 24 hours if stable. Objective - Vital Signs Vital signs: Vital Signs Temp 98.7 F 11/04/17 11:21 Pulse 91 11/04/17 11:21 Resp 15 11/04/17 11:21 BP 98/68 11/04/17 11:21 Pulse Ox 93 L 11/04/17 11:21 Intake & Output 11/03/17 11/04/17 11/04/17 18:59 06:59 18:59 Intake Total 800 300 Output Total 811 1966 700 Balance -11 -1666 -700 Weight 63 kg Intake: IV 240 60 0.9 @ KVO 240 60 Oral 560 240 Output: Urine 811 1966 700 Uretheral (Bocanegra) 700 Other: Voiding Method Indwelling Catheter Indwelling Catheter Indwelling Catheter # Bowel Movements 0 0 - Exam HEENT examination is grossly unremarkable. Mucous membranes are moist. No oral lesions. Neck supple. Full range of motion. No adenopathy thyromegaly or neck vein distention. Cardiovascular examination reveals a irregular rhythm and rate. She is clearly in atrial fibrillation. S1-S2 normal. Heart rate about 80 bpm.. Lungs reveal bibasilar crackles. No wheezes. A few scattered rhonchi. Breath sounds are equal bilaterally. Breath sounds are diminished throughout. Abdomen soft bowel sounds are heard. No masses or tenderness. Extremities are intact. Mild edema is noted. No cyanosis or clubbing Skin is without rash or lesion. Neurologic examination is difficult to assess. - Labs CBC & Chem 7: 11/04/17 06:24 11/04/17 06:24 Labs: Abnormal Lab Results - Last 24 Hours (Table) 11/03/17 11/03/17 11/04/17 Range/Units 16:56 20:43 06:15 Carbon Dioxide (22-30) mmol/L BUN (7-17) mg/dL POC Glucose (mg/dL) 106 H 102 H 102 H (75-99) mg/dL 11/04/17 11/04/17 Range/Units 06:24 12:00 Carbon Dioxide 31 H (22-30) mmol/L BUN 20 H (7-17) mg/dL POC Glucose (mg/dL) 103 H (75-99) mg/dL Microbiology - Last 24 Hours (Table) 11/02/17 06:45 Urine Culture - Final Urine,Catheterized Assessment and Plan Plan: Assessment 1 Acute hypoxemic respiratory failure secondary to congestive heart failure, systolic acute on chronic 2 Chronic atrial fibrillation with controlled ventricular response. 3 History of hypertension 4 History of dementia 5 History of hyperlipidemia 6 Mild elevation of troponin, likely related to supply demand mismatch. Plan We'll discontinue the IV Lasix today. Continue anticoagulation with Eliquis 200 mg one tablet by mouth twice a day. Continue beta byron and angiotensin byron as well as Aldactone. Plan for possible discharge home in 24 hours if stable. DNP note has been reviewed, I agree with a documented findings and plan of care. Patient was seen and examined.
[2017-11-04 14:57] VITALS: BMI 23.8
[2017-11-04] MEDS: FUROSEMIDE 40 MG TAB PO SCH (15:56)
[2017-11-04 17:02] LABS: Glucose,Whole Blood 109 mg/dL (75-99)
[2017-11-04 20:51] LABS: Glucose,Whole Blood 120 mg/dL (75-99)
[2017-11-05 05:22] LABS: Glucose,Whole Blood 104 mg/dL (75-99)
[2017-11-05] MEDS: INSULIN ASPART 100 UNIT/ML 1 ML 10 ML VIAL SQ SCH ×4 (05:41→22:04)
[2017-11-05 06:18] LABS: Basophils % (A) 0 %; Eosinophils # (A) 0.2 k/uL (0-0.7); Eosinophils % (A) 2 %; HCT 42.2 % (34.0-46.0); HGB 14.3 gm/dL (11.4-16.0); Lymphocytes # (A) 1.6 k/uL (1.0-4.8); Lymphocytes % (A) 25 %; MCH 29.5 pg (25.0-35.0); MCHC 33.8 g/dL (31.0-37.0); MCV 87.3 fL (80.0-100.0); Mean Platelet Volume 6.7; Monocytes # (A) 0.4 k/uL (0-1.0); Monocytes % (A) 5 %; Neutrophils # (A) 4.3 k/uL (1.3-7.7); Neutrophils % (A) 66 %; Platelet Count 184 k/uL (150-450); RBC 4.83 m/uL (3.80-5.40); RDW 13.8 % (11.5-15.5); WBC 6.5 k/uL (3.8-10.6)
[2017-11-05 06:25] LABS: Anion Gap 9 mmol/L; Blood Urea Nitrogen 23 mg/dL (7-17); Calcium 9.1 mg/dL (8.4-10.2); Carbon Dioxide 26 mmol/L (22-30); Chloride 104 mmol/L (98-107); Glucose 104 mg/dL (74-99); Magnesium 2.1 mg/dL (1.6-2.3); Phosphorus 4.2 mg/dL (2.5-4.5); Potassium 4.2 mmol/L (3.5-5.1); Sodium 139 mmol/L (137-145)
[2017-11-05] MEDS: CARVEDILOL 3.125 MG TAB PO SCH ×2 (06:43→17:38)
--- NOTE | 2017-11-05 06:46 | XR ---
EXAMINATION TYPE: XR chest 1V DATE OF EXAM: 11/05/2017 HISTORY: fluid overload. REFERENCE: Previous study dated 11/04/2017. FINDINGS: The lungs are overinflated. The heart is enlarged. There are small, bilateral effusions. Th ere is vascular congestion and subtle interstitial change. IMPRESSION: 1. COPD. 2. CONTINUING SUBTLE CHANGES OF CONGESTIVE HEART FAILURE.
[2017-11-05] MEDS: LOSARTAN 25 MG TAB PO SCH (07:50)
[2017-11-05] MEDS: APIXABAN 2.5 MG TABLET PO SCH ×2 (07:51→20:31)
[2017-11-05] MEDS: ATORVASTATIN 10 MG TAB PO SCH (07:51)
[2017-11-05] MEDS: SPIRONOLACTONE 25 MG TAB PO SCH (07:51)
[2017-11-05] MEDS: PANTOPRAZOLE 40 MG/10 ML VIAL IV SCH (07:51)
[2017-11-05] MEDS: POTASSIUM CHLORIDE ER 20 MEQ TAB.ER PO SCH (07:51)
[2017-11-05] MEDS: FUROSEMIDE 40 MG TAB PO SCH ×2 (07:54→15:22)
[2017-11-05 11:33] LABS: Glucose,Whole Blood 137 mg/dL (75-99)
--- NOTE | 2017-11-05 13:01 | P.PN ---
Subjective This is a pleasant 82-year-old female seen and examined sitting up comfortably in bed. She denies symptoms of chest pain, shortness of breath, dizziness or palpitations. Started on oral diuretics yesterday. Telemetry tracings unremarkable. Blood pressure 89/58 heart rate 83 maintaining oxygen saturation on room air. Currently maintained apixiban, atorvastatin, coreg, losartan and aldactone. Ejection fraction 35-40%, severe MR, severely dilated. Objective - Vital Signs Vital signs: Vital Signs Temp 97.2 F L 11/05/17 11:53 Pulse 81 11/05/17 11:53 Resp 15 11/05/17 11:53 BP 89/58 11/05/17 12:21 Pulse Ox 95 11/05/17 11:53 Intake & Output 11/04/17 11/05/17 11/05/17 18:59 06:59 18:59 Intake Total 250 Output Total 3250 Balance -3250 250 Weight 63 kg 61.5 kg Intake: IV 10 0.9 @ KVO 10 Oral 240 Output: Urine 3250 Uretheral (Bocanegra) 700 Other: Voiding Method Indwelling Catheter Indwelling Catheter Indwelling Catheter # Bowel Movements 0 - Exam GENERAL: Well-appearing, well-nourished and in no acute distress. NECK: Supple without JVD or thyromegaly. LUNGS: Breath sounds clear to auscultation bilaterally. Respiration equal and unlabored. No wheezes, rales or rhonchi. HEART: Irregular rate and rhythm without murmurs, rubs or gallops. S1 and S2 heard. EXTREMITIES: Normal range of motion, no edema. No clubbing or cyanosis. Peripheral pulses intact. - Labs CBC & Chem 7: 11/05/17 05:42 11/05/17 05:42 Labs: Abnormal Lab Results - Last 24 Hours (Table) 11/04/17 11/04/17 11/05/17 Range/Units 17:01 20:48 05:20 BUN (7-17) mg/dL Glucose (74-99) mg/dL POC Glucose (mg/dL) 109 H 120 H 104 H (75-99) mg/dL 11/05/17 11/05/17 Range/Units 05:42 11:30 BUN 23 H (7-17) mg/dL Glucose 104 H (74-99) mg/dL POC Glucose (mg/dL) 137 H (75-99) mg/dL Assessment and Plan Assessment: ASSESSMENT Acute hypoxic respiratory failure secondary to congestive heart failure, systolic with EF 35-40% Mild troponin elevation secondary to supply-demand mismatch Chronic persistent a-fib with controlled ventricular response on detention anticoagulation Hypertension History of dementia Dyslipidemia PLAN Patient is currently euvolemic. Oral diuretics for home 40 mg BID. Follow up with Dr. Abreu in 2 weeks. Nurse Practitioner note has been reviewed, I agree with a documented findings and plan of care. Patient was seen and examined.
[2017-11-05 16:41] LABS: Glucose,Whole Blood 114 mg/dL (75-99)
[2017-11-05 21:33] LABS: Glucose,Whole Blood 125 mg/dL (75-99)
--- NOTE | 2017-11-06 00:03 | P.PN ---
Subjective Progress Note Date: 11/04/17 Principal diagnosis: Acute CHF exacerbation Patient is a 82-year-old female with a known history of atrial fibrillation on anticoagulation, CHF, hypertension, hyperlipidemia and dementia was initially presented to outside hospital facility with complaints of shortness of breath. Patient was noted to be tachypneic and hypoxic upon arrival to the outside hospital. Patient was placed on CPAP/BiPAP and was transferred to [facility] for cardiac evaluation and patient was admitted to intensive care unit. Patient was also found to have lactic is level 5.9. Troponin 1 negative and EKG showed atrial fibrillation with controlled ventricular rate. Currently patient breathing status is much improved now being monitored in the MICU. BNP 2480 Troponin 0.060 Chest x-ray showed COPD with bilateral infiltrate and small effusion correlate for mild vascular congestion. patient has been afebrile and WBC count 9.7 On 11/03/2017 Patient's breathing status is much improved now. Currently saturating well on nasal cannula. Patient is on IV Lasix and Coreg was added. Cardiology and pulmonary is following. Chest x-ray showed COPD with bilateral infiltrate and small effusion correlate for mild vascular congestion 2-D echocardiogram showed ejection fraction 35-40% No complaints of fever or chills. No nausea vomiting or abdominal pain. Patient does have underlying dementia otherwise. 11/04/2017 Patient's breathing status is much improved now. Lasix changed to by mouth. Continued on spironolactone. Continued on Coreg and low-dose lisinopril. Anticipate discharge in next 24 hours with more clinical improvement. Cardiology is following. Patient otherwise denied any chest pain or shortness of breath. No nausea vomiting or abdominal pain. No other acute overnight issues. Current medications reviewed Objective - Vital Signs Vital signs: Vital Signs Temp 98.6 F 11/04/17 20:40 Pulse 75 11/04/17 20:40 Resp 18 11/04/17 20:40 BP 97/58 11/04/17 20:40 Pulse Ox 95 11/04/17 20:40 Intake & Output 11/04/17 11/04/17 11/05/17 06:59 18:59 06:59 Intake Total 300 240 Output Total 19650 Balance -6 240 Weight 63 kg 63 kg Intake: IV 60 0.9 @ KVO 60 Oral 240 240 Output: Urine 19650 Uretheral (Bocanegra) 700 Other: Voiding Method Indwelling Catheter Indwelling Catheter Indwelling Catheter # Bowel Movements 0 0 - Exam PHYSICAL EXAMINATION: Patient is lying in the bed comfortably, no acute distress, awake alert and oriented.. HEENT: Normocephalic. Neck is supple. Pupils reactive. Nostrils clear. Oral cavity is moist. Ears reveal no drainage. Neck reveals no JVD, carotid bruits, or thyromegaly. CHEST EXAMINATION: Trachea is central. Symmetrical expansion. Lung álvarez clear to auscultation and percussion. CARDIAC: Normal S1, S2 with no gallops. No murmurs ABDOMEN: Soft. Bowel sounds normal. No organomegaly. No abdominal bruits. Extremities: reveal no edema. No clubbing or cyanosis Neurologically awake, alert, oriented x2 with well-coordinated movements. No focal deficits noted Skin: No rash or skin lesions. Psychiatric: Coperative. Musculoskeletal: No joint swelling or deformity. Normal range of motion. - Labs CBC & Chem 7: 11/05/17 05:42 11/05/17 05:42 Labs: Abnormal Lab Results - Last 24 Hours (Table) 11/04/17 11/04/17 11/04/17 Range/Units 06:15 06:24 12:00 Carbon Dioxide 31 H (22-30) mmol/L BUN 20 H (7-17) mg/dL POC Glucose (mg/dL) 102 H 103 H (75-99) mg/dL 11/04/17 11/04/17 Range/Units 17:01 20:48 Carbon Dioxide (22-30) mmol/L BUN (7-17) mg/dL POC Glucose (mg/dL) 109 H 120 H (75-99) mg/dL Assessment and Plan Assessment: Acute hypoxic respiratory failure secondary to CHF exacerbation. Acute CHF with systolic dysfunction. Ejection fraction 35-40%. Elevated troponin level. Possible non-ST elevated [place]. Chronic atrial fibrillation. On anticoagulation with eliquis, Rate controlled. Hypertension controlled Hyperlipidemia Dementia History of the CVA/TIA. No residual defects. Osteoarthritis Previous history of smoking Plan: Patient was continued on Lasix IV twice daily. Changed to by mouth. Saturating well on nasal cannula and titrate down to room air.. Patient was started on Coreg 3.125 mg twice a day. Continue with oral anticoagulation. Telemetry monitoring. Cardiology was consulted and pulmonary is following. 2- D echocardiogram was done. Further recommendations based on the clinical course. Prognosis guarded. Time with Patient: Greater than 30
--- NOTE | 2017-11-06 00:33 | P.PN ---
Subjective Progress Note Date: 11/05/17 Principal diagnosis: Acute CHF exacerbation Patient is a 82-year-old female with a known history of atrial fibrillation on anticoagulation, CHF, hypertension, hyperlipidemia and dementia was initially presented to outside hospital facility with complaints of shortness of breath. Patient was noted to be tachypneic and hypoxic upon arrival to the outside hospital. Patient was placed on CPAP/BiPAP and was transferred to [facility] for cardiac evaluation and patient was admitted to intensive care unit. Patient was also found to have lactic is level 5.9. Troponin 1 negative and EKG showed atrial fibrillation with controlled ventricular rate. Currently patient breathing status is much improved now being monitored in the MICU. BNP 2480 Troponin 0.060 Chest x-ray showed COPD with bilateral infiltrate and small effusion correlate for mild vascular congestion. patient has been afebrile and WBC count 9.7 On 11/03/2017 Patient's breathing status is much improved now. Currently saturating well on nasal cannula. Patient is on IV Lasix and Coreg was added. Cardiology and pulmonary is following. Chest x-ray showed COPD with bilateral infiltrate and small effusion correlate for mild vascular congestion 2-D echocardiogram showed ejection fraction 35-40% No complaints of fever or chills. No nausea vomiting or abdominal pain. Patient does have underlying dementia otherwise. 11/04/2017 Patient's breathing status is much improved now. Lasix changed to by mouth. Continued on spironolactone. Continued on Coreg and low-dose lisinopril. Anticipate discharge in next 24 hours with more clinical improvement. Cardiology is following. 11/05/2017 Patient denied any complaints of chest pain or shortness of breath. Otherwise blood pressure is in low 90s. Continue with low-dose Coreg and losartan and Lasix. Monitor tonight. Possible discharge tomorrow if the blood pressure is stable. Patient otherwise denied any chest pain or shortness of breath. No nausea vomiting or abdominal pain. No other acute overnight issues. Current medications reviewed Objective - Vital Signs Vital signs: Vital Signs Temp 97.7 F 11/05/17 15:19 Pulse 76 11/05/17 15:19 Resp 18 11/05/17 15:19 BP 91/64 11/05/17 15:19 Pulse Ox 96 11/05/17 15:19 Intake & Output 11/05/17 11/05/17 11/06/17 06:59 18:59 06:59 Intake Total 250 368 Output Total 1500 Balance 250 -1132 Weight 61.5 kg 61.5 kg Intake: IV 10 0.9 @ KVO 10 Oral 240 368 Output: Urine 1500 Other: Voiding Method Indwelling Catheter Indwelling Catheter # Voids 1 # Bowel Movements 0 - Exam PHYSICAL EXAMINATION: Patient is lying in the bed comfortably, no acute distress, awake alert and oriented.. HEENT: Normocephalic. Neck is supple. Pupils reactive. Nostrils clear. Oral cavity is moist. Ears reveal no drainage. Neck reveals no JVD, carotid bruits, or thyromegaly. CHEST EXAMINATION: Trachea is central. Symmetrical expansion. Lung álvarez clear to auscultation and percussion. CARDIAC: Normal S1, S2 with no gallops. No murmurs ABDOMEN: Soft. Bowel sounds normal. No organomegaly. No abdominal bruits. Extremities: reveal no edema. No clubbing or cyanosis Neurologically awake, alert, oriented x2 with well-coordinated movements. No focal deficits noted Skin: No rash or skin lesions. Psychiatric: Coperative. Musculoskeletal: No joint swelling or deformity. Normal range of motion. - Labs CBC & Chem 7: 11/05/17 05:42 11/05/17 05:42 Labs: Abnormal Lab Results - Last 24 Hours (Table) 11/04/17 11/05/17 11/05/17 Range/Units 20:48 05:20 05:42 BUN 23 H (7-17) mg/dL Glucose 104 H (74-99) mg/dL POC Glucose (mg/dL) 120 H 104 H (75-99) mg/dL 11/05/17 11/05/17 Range/Units 11:30 16:35 BUN (7-17) mg/dL Glucose (74-99) mg/dL POC Glucose (mg/dL) 137 H 114 H (75-99) mg/dL Assessment and Plan Assessment: Acute hypoxic respiratory failure secondary to CHF exacerbation. Acute CHF with systolic dysfunction. Ejection fraction 35-40%. Elevated troponin level. Possible non-ST elevated [place]. Chronic atrial fibrillation. On anticoagulation with eliquis, Rate controlled. Hypertension controlled Hyperlipidemia Dementia History of the CVA/TIA. No residual defects. Osteoarthritis Previous history of smoking Plan: Patient was continued on Lasix IV twice daily. Changed to by mouth. Saturating well on nasal cannula and titrate down to room air.. Patient was started on Coreg 3.125 mg twice a day. Continue with oral anticoagulation. Telemetry monitoring. Cardiology was consulted and pulmonary is following. 2- D echocardiogram was done. Further recommendations based on the clinical course. Prognosis guarded. Time with Patient: Greater than 30
[2017-11-06 06:25] LABS: Basophils % (A) 1 %; Eosinophils # (A) 0.2 k/uL (0-0.7); Eosinophils % (A) 3 %; HCT 43.3 % (34.0-46.0); HGB 14.5 gm/dL (11.4-16.0); Lymphocytes # (A) 1.7 k/uL (1.0-4.8); Lymphocytes % (A) 30 %; MCH 29.5 pg (25.0-35.0); MCHC 33.5 g/dL (31.0-37.0); MCV 88.1 fL (80.0-100.0); Mean Platelet Volume 6.6; Monocytes # (A) 0.4 k/uL (0-1.0); Monocytes % (A) 7 %; Neutrophils # (A) 3.2 k/uL (1.3-7.7); Neutrophils % (A) 57 %; Platelet Count 202 k/uL (150-450); RBC 4.91 m/uL (3.80-5.40); RDW 13.8 % (11.5-15.5); WBC 5.7 k/uL (3.8-10.6)
[2017-11-06 06:31] LABS: Anion Gap 9 mmol/L; Blood Urea Nitrogen 26 mg/dL (7-17); Calcium 9.2 mg/dL (8.4-10.2); Carbon Dioxide 24 mmol/L (22-30); Chloride 105 mmol/L (98-107); Glucose 109 mg/dL (74-99); Phosphorus 4.9 mg/dL (2.5-4.5); Potassium 4.4 mmol/L (3.5-5.1); Sodium 138 mmol/L (137-145)
[2017-11-06] MEDS: CARVEDILOL 3.125 MG TAB PO SCH (06:42)
[2017-11-06] MEDS: INSULIN ASPART 100 UNIT/ML 1 ML 10 ML VIAL SQ SCH ×2 (06:42→11:14)
[2017-11-06 07:59] VITALS: RESP 16
[2017-11-06] MEDS: FUROSEMIDE 40 MG TAB PO SCH ×2 (08:04→15:30)
[2017-11-06] MEDS: ATORVASTATIN 10 MG TAB PO SCH (08:04)
[2017-11-06] MEDS: APIXABAN 2.5 MG TABLET PO SCH (08:04)
[2017-11-06] MEDS: LOSARTAN 25 MG TAB PO SCH (08:04)
[2017-11-06] MEDS: PANTOPRAZOLE 40 MG/10 ML VIAL IV SCH (08:05)
[2017-11-06] MEDS: POTASSIUM CHLORIDE ER 20 MEQ TAB.ER PO SCH (08:05)
[2017-11-06] MEDS: SPIRONOLACTONE 25 MG TAB PO SCH (08:05)
--- NOTE | 2017-11-06 10:53 | XR ---
EXAMINATION TYPE: XR chest 1V DATE OF EXAM: 11/06/2017 COMPARISON: Prior chest 11/05/2017 HISTORY: Fluid overload, heart failure TECHNIQUE: Single frontal view of the chest is obtained. FINDINGS: Patient is rotated, heart remains enlarged. There is blunting of costophrenic angles. No e vident pneumothorax. Interstitium is prominent but diminished. Pulmonary vascularity and doreen not sig nificantly changed. There is improvement in aeration. IMPRESSION: Suspect improvement in patient's volume status. Follow-up recommended.
[2017-11-06 11:19] LABS: Glucose,Whole Blood 117 mg/dL (75-99)
--- NOTE | 2017-11-06 12:42 | P.PN ---
Subjective Progress Note Date: 11/06/17 This is a 82-year-old female who presents with emergent problem with complaints of increasing shortness of breath. She apparently has a history of chronic atrial fibrillation CHF hypertension dementia hyperlipidemia and vitamin D deficiency. She's also vitamin B12 may have pernicious anemia. She presented to the hospital with symptoms of progressively worsening shortness of breath. Currently receiving treatment for congestive heart failure. She diuresed well through the night last night, her weight is down a kilograms today. Patient does have history of chronic atrial fibrillation, hypertension, hyperlipidemia. She is on Eliquis 200 mg one tablet by mouth twice a day this time for anticoagulation. We'll discontinue the IV Lasix today and start the patient on oral diuretics. Plan for possible discharge home in 24 hours if stable. 11/06/2017 Patient seen and examined this morning, feeling well, on oral diuretics at this time. Blood pressure 105/60, heart rate in the 80s. White blood cell count 5.7 , hemoglobin 14.5, platelet count 202. Sodium 138, potassium 4.4, BUN 26, creatinine 0.7, magnesium 2.2 Objective - Vital Signs Vital signs: Vital Signs Temp 98.2 F 11/06/17 07:57 Pulse 83 11/06/17 11:12 Resp 16 11/06/17 11:12 BP 105/62 11/06/17 11:08 Pulse Ox 95 11/06/17 11:08 Intake & Output 11/05/17 11/06/17 11/06/17 18:59 06:59 18:59 Intake Total 368 360 240 Output Total 1500 350 Balance -1132 10 240 Weight 61.5 kg 61 kg Intake: Oral 368 360 240 Output: Urine 1500 350 Other: Voiding Method Indwelling Catheter Toilet # Voids 1 1 # Bowel Movements 0 - Exam HEENT examination is grossly unremarkable. Mucous membranes are moist. No oral lesions. Neck supple. Full range of motion. No adenopathy thyromegaly or neck vein distention. Cardiovascular examination reveals a irregular rhythm and rate. She is clearly in atrial fibrillation. S1-S2 normal. Heart rate about 80 bpm.. Lungs reveal bibasilar crackles. No wheezes. A few scattered rhonchi. Breath sounds are equal bilaterally. Breath sounds are diminished throughout. Abdomen soft bowel sounds are heard. No masses or tenderness. Extremities are intact. Mild edema is noted. No cyanosis or clubbing Skin is without rash or lesion. Neurologic examination is difficult to assess. - Labs CBC & Chem 7: 11/06/17 05:54 11/06/17 05:54 Labs: Abnormal Lab Results - Last 24 Hours (Table) 11/05/17 11/05/17 11/06/17 Range/Units 16:35 21:23 05:54 BUN 26 H (7-17) mg/dL Glucose 109 H (74-99) mg/dL POC Glucose (mg/dL) 114 H 125 H (75-99) mg/dL Phosphorus 4.9 H (2.5-4.5) mg/dL 11/06/17 Range/Units 11:14 BUN (7-17) mg/dL Glucose (74-99) mg/dL POC Glucose (mg/dL) 117 H (75-99) mg/dL Phosphorus (2.5-4.5) mg/dL Assessment and Plan Plan: Assessment 1 Acute hypoxemic respiratory failure secondary to congestive heart failure, systolic acute on chronic 2 Chronic atrial fibrillation with controlled ventricular response. 3 History of hypertension 4 History of dementia 5 History of hyperlipidemia 6 Mild elevation of troponin, likely related to supply demand mismatch. Plan Cardiology's perspective, patient may be able to be discharged once cleared by primary. We will make her a follow-up appointment in the office post discharge. DNP note has been reviewed, I agree with a documented findings and plan of care. Patient was seen and examined.
--- NOTE | 2017-11-06 13:06 | P.DS ---
Providers Date of admission: 11/02/17 05:02 Attending physician: Patricio West Consults: 11/02/17 05:02 Consult Physician Stat Consulting Provider: Willis Johns Consult Reason/Comments: chf, pulmonary edema, ICU admission Do you want consulting provider notified?: Already Contacted 11/02/17 16:17 Consult Physician Routine Consulting Provider: Angel Abreu Consult Reason/Comments: CHF, Afib Do you want consulting provider notified?: Yes Primary care physician: Robb Torres [facility] Course: 82-year-old female with a known history of atrial fibrillation on anticoagulation, CHF, hypertension, hyperlipidemia and dementia was initially presented to outside hospital facility with complaints of shortness of breath. Patient was noted to be tachypneic and hypoxic upon arrival to the outside hospital. Patient was placed on CPAP/BiPAP and was transferred to [facility] for cardiac evaluation and patient was admitted to intensive care unit. Patient was also found to have lactic is level 5.9. Troponin 1 negative and EKG showed atrial fibrillation with controlled ventricular rate. Currently patient breathing status is much improved now being monitored in the MICU. BNP 2480 Troponin 0.060 Chest x-ray showed COPD with bilateral infiltrate and small effusion correlate for mild vascular congestion. patient has been afebrile and WBC count 9.7 On 11/03/2017 Patient's breathing status is much improved now. Currently saturating well on nasal cannula. Patient is on IV Lasix and Coreg was added. Cardiology and pulmonary is following. Chest x-ray showed COPD with bilateral infiltrate and small effusion correlate for mild vascular congestion 2-D echocardiogram showed ejection fraction 35-40% No complaints of fever or chills. No nausea vomiting or abdominal pain. Patient does have underlying dementia otherwise. 11/04/2017 Patient's breathing status is much improved now. Lasix changed to by mouth. Continued on spironolactone. Continued on Coreg and low-dose lisinopril. Anticipate discharge in next 24 hours with more clinical improvement. Cardiology is following. 11/05/2017 Patient denied any complaints of chest pain or shortness of breath. Otherwise blood pressure is in low 90s. Continue with low-dose Coreg and losartan and Lasix. Monitor tonight. Possible discharge tomorrow if the blood pressure is stable. 11/06/2017 Patient is clinically doing well and is euvolemic increasing the dose of Lasix cutting down the dose of losartan as recommended by cardiology. Patient will be discharged today. Patient will need home care PHYSICAL EXAMINATION: GENERAL: The patient is alert and oriented x3, not in any acute distress. Well developed, well nourished. HEENT: Pupils are round and equally reacting to light. EOMI. No scleral icterus. No conjunctival pallor. Normocephalic, atraumatic. No pharyngeal erythema. No thyromegaly. CARDIOVASCULAR: S1 and S2 present. No murmurs, rubs, or gallops. PULMONARY: Chest is clear to auscultation, no wheezing or crackles. ABDOMEN: Soft, nontender, nondistended, normoactive bowel sounds. No palpable organomegaly. MUSCULOSKELETAL: No joint swelling or deformity. EXTREMITIES: No cyanosis, clubbing, or pedal edema. NEUROLOGICAL: Gross neurological examination did not reveal any focal deficits. SKIN: No rashes. Assessment and Plan Assessment: Acute hypoxic respiratory failure secondary to CHF exacerbation. Acute CHF with systolic dysfunction. Ejection fraction 35-40%. Elevated troponin level. Possible non-ST elevated [place]. Chronic atrial fibrillation. On anticoagulation with eliquis, Rate controlled. Hypertension controlled Hyperlipidemia Dementia History of the CVA/TIA. No residual defects. Osteoarthritis Previous history of smoking Plan - Discharge Summary Discharge Rx Participant: Yes New Discharge Prescriptions: New Losartan [Cozaar] 12.5 mg PO DAILY #30 tab Furosemide [Lasix] 40 mg PO BID@0900,1600 tab Continue Donepezil [Aricept] 10 mg PO DAILY Carvedilol [Coreg] 3.125 mg PO BID Atorvastatin Calcium [Lipitor] 10 mg PO DAILY Apixaban [Eliquis] 2.5 mg PO BID Discontinued Losartan [Cozaar] 25 mg PO DAILY Ibuprofen [Motrin] 400 mg PO TID PRN PRN Reason: Pain Furosemide [Lasix] 40 mg PO DAILY No Action Potassium Chloride [Klor-Con 20] 20 meq PO DAILY Discharge Medication List Apixaban [Eliquis] 2.5 mg PO BID 11/02/17 [History] Atorvastatin Calcium [Lipitor] 10 mg PO DAILY 11/02/17 [History] Carvedilol [Coreg] 3.125 mg PO BID 11/02/17 [History] Donepezil [Aricept] 10 mg PO DAILY 11/02/17 [History] Potassium Chloride [Klor-Con 20] 20 meq PO DAILY 11/02/17 [History] Losartan [Cozaar] 12.5 mg PO DAILY #30 tab 11/05/17 [Rx] Furosemide [Lasix] 40 mg PO BID@0900,1600 tab 11/06/17 [Rx] Follow up Appointment(s)/Referral(s): Robb Haley DO [Primary Care Provider] - 1-2 days [facility], [NON-STAFF] - 1-2 Days Angel Abreu MD [STAFF PHYSICIAN] - 2 Weeks Discharge Disposition: HOME WITH HOME HEALTH SERVICES
[2017-11-06 15:07] VITALS: BP 134/74; PULSE 72; TEMP 97.8
[2017-11-07] MEDS ORDERED: PANTOPRAZOLE 40 MG TABLET PO SCH (09:00)
== END 2017-11-06 16:48 | disposition home health service (06) | DRG 280 ==
LOC: EC 04:07 → SUPCPDRO 04:07 → 6ICU 05:02 → 6SEL 11-03 22:19
PROVIDERS: ADMIT Hospitalist; ATTEND Hospitalist
DX: I11.0 Hypertensive heart disease with heart failure (principal); J96.01 Acute respiratory failure with hypoxia; I21.4 Non-ST elevation (NSTEMI) myocardial infarction; I50.23 Acute on chronic systolic (congestive) heart failure; E55.9 Vitamin D deficiency, unspecified; E78.5 Hyperlipidemia, unspecified; F03.90 Unspecified dementia, unspecified severity, without behavioral disturbance, psychotic disturbance, mood disturbance, and anxiety; I48.2 Chronic atrial fibrillation; J44.9 Chronic obstructive pulmonary disease, unspecified; M19.90 Unspecified osteoarthritis, unspecified site; Z79.01 Long term (current) use of anticoagulants; Z82.49 Family history of ischemic heart disease and other diseases of the circulatory system; Z86.73 Personal history of transient ischemic attack (TIA), and cerebral infarction without residual deficits; Z87.891 Personal history of nicotine dependence; Z90.710 Acquired absence of both cervix and uterus; Z98.42 Cataract extraction status, left eye; Z98.41 Cataract extraction status, right eye; Z79.899 Other long term (current) drug therapy; Z88.8 Allergy status to other drugs, medicaments and biological substances
CPT/HCPCS: 71045; 80048; 80053; 81003; 82550; 82553; 83036; 83735; 83880; 84100; 84484; 85025; 85610; 85730; 87086; 93005; 93306; 94660; 96365; 99285